=== PATIENT | female | born 2000 | race Caucasian/White ===

== ENCOUNTER 2024-03-17 10:08 | Outpatient (RCR) | payer BC, OTHER, SELFPAY ==
[2024-02-21 08:08] VITALS: BP 121/65; PULSE 74
[2024-02-25 10:07] VITALS: BP 122/79; PULSE 69
[2024-02-29 13:48] VITALS: BP 128/64; PULSE 75
[2024-03-03 09:34] VITALS: BP 121/67; PULSE 74
[2024-03-07 09:57] VITALS: BP 118/65; PULSE 76
[2024-03-10 08:37] VITALS: BP 127/71; PULSE 76
[2024-03-13 09:53] VITALS: BP 112/66; PULSE 70
--- NOTE | ~2024-03-17 | US_ITS ---
EXAMINATION: US OB follow up DATE: 03/10/2024 09:04 INDICATION: Assess growth during third trimester of TECHNIQUE: Real-time ultrasound of the pelvis was performed. The interpreting radiologist was not pre sent for the study. COMPARISON: 03/07/2024 FINDINGS: There is a single living fetus in vertex presentation. The placenta is posterior fundal. heart rate is 126 beats per minute (bpm). Amniotic fluid volume is subjectively normal. The following biometric data were obtained: BPD: 9.3 cm -> 37 weeks 6 days Head circumference: 33.2 cm -> 37 weeks 6 days Abdominal circumference: 32.3 cm -> 36 weeks 1 days Femur length: 7.4 cm -> 37 weeks 6 days These measurements are concordant. Head circumference to abdominal circumference ratio: 1.03 (normal range 0.91-1.05). Estimated weight: 3090 g (+/-) 464 g or 6 lbs. 13 oz. (+/-) 16 oz. IMPRESSION: 1. Single living fetus in vertex presentation with heart rate of 126 bpm. 2. Estimated weight is 39th percentile by Hadlock criteria when 03/28/2024 is used as the estima cira date of delivery (VITALY). Please correlate with clinical information or earlier ultrasounds for mos t accurate VITALY. Reviewed, dictated and finalized at location A. IMPRESSION: 1. Single living fetus in vertex presentation with heart rate of 126 bpm. 2. Estimated weight is 39th percentile by Hadlock criteria when 03/28/2024 is used as the estimated date of delivery (VITALY). Please correlate with clinica l information or earlier ultrasounds for most accurate VITALY.
--- NOTE | ~2024-03-17 | US_ITS ---
US OB BPP wo non-stress DATE: 02/29/2024 14:40 INDICATION: Small for gestational age TECHNIQUE: Real-time imaging and Doppler analysis COMPARISON: 02/21/2024 obstetrical ultrasound biophysical profile FINDINGS: Live martinez intrauterine gestation in longitudinal lie, vertex presentation with h eart rate of 136 bpm. Placenta is posterior to maternal left. No evidence of previa. BIOPHYSICAL PROFILE reported by body technician: breathin out of 2 movement: 2 out of 2 tone: 2 out of 2 Amniotic fluid pocket: 2 out of 2 Total score: 8 out of 8 IMPRESSION: Normal biophysical profile score of 8 out of 8 Reviewed, dictated and finalized at Location A. Reviewed, dictated and finalized at location J.
--- NOTE | ~2024-03-17 | US_ITS ---
EXAMINATION: US OB limited w BPP DATE: 03/17/2024 12:59 INDICATION: Decelerations. IUGR. TECHNIQUE: Real-time pelvic ultrasound was performed. The interpreting radiologist was not present fo r the study. COMPARISON: Ultrasound dated 03/13/2024 FINDINGS: There is a single living fetus in vertex presentation. The placenta is maternal left. cardiac activity and movement are demonstrated. heart rate is 135 beats per minute (bpm). Biophysical profile performed by the technologist: breathing (30 sec sustained breathing in 30 minutes): 2 out of 2 movement (3 gross body movements in 30 minutes): 0 out of 2 tone (one episode of gntvzvz-vcgbrwyww-jbeycph limb movement): 2 out of 2 Amniotic fluid pocket (2 cm): 2 out of 2 Total score: 6 out of 8 IMPRESSION: 1. Single living intrauterine in vertex presentation with heart rate of 135 bpm. 2. Normal placenta. 3. Biophysical profile 6 out of 8. Reviewed, dictated and finalized at location B.
--- NOTE | ~2024-03-17 | US_ITS ---
EXAMINATION: US OB BPP wo non-stress DATE: 03/07/2024 09:39 INDICATION: Intrauterine growth restriction. Third trimester. TECHNIQUE: Real-time pelvic ultrasound was performed. COMPARISON: Ultrasound 02/29/2024 FINDINGS: There is a single living fetus in vertex presentation. The placenta is posterior. heart rate i s 128 beats per minute (bpm). Biophysical profile performed by the technologist: breathing (30 sec sustained breathing in 30 minutes): 2 out of 2 movement (3 gross body movements in 30 minutes): 2 out of 2 tone (one episode of xdbxqwm-xgqsimryi-fzqgpva limb movement): 2 out of 2 Amniotic fluid pocket (2 cm): 2 out of 2 Total score: 8 out of 8 IMPRESSION: 1. Single living fetus in vertex presentation. 2. Biophysical profile 8 out of 8. Reviewed, dictated and finalized at location A.
--- NOTE | ~2024-03-17 | US_ITS ---
EXAMINATION: US OB BPP wo non-stress DATE: 02/21/2024 09:10 INDICATION: Small for gestational age TECHNIQUE: Real-time pelvic ultrasound was performed. The interpreting radiologist was not present fo r the study. COMPARISON: None. FINDINGS: There is a single living fetus in vertex presentation. The placenta is maternal left. cardiac activity and movement are demonstrated. heart rate is 125 beats per minute (bpm). Biophysical profile performed by the technologist: breathing (30 sec sustained breathing in 30 minutes): 2 out of 2 movement (3 gross body movements in 30 minutes): 2 out of 2 tone (one episode of xfrwruk-lipvgbkiw-eobodqf limb movement): 2 out of 2 Amniotic fluid pocket (2 cm): 2 out of 2 Total score: 8 out of 8 IMPRESSION: 1. Single living intrauterine in vertex presentation with heart rate of 125 bpm. 2. Normal placenta. 3. Biophysical profile 8 out of 8. Reviewed, dictated and finalized at location B.
--- NOTE | ~2024-03-17 | US_ITS ---
EXAMINATION: US OB BPP wo non-stress DATE: 03/13/2024 09:50 INDICATION: Intrauterine growth retardation during third trimester of TECHNIQUE: Real-time pelvic ultrasound was performed. The interpreting radiologist was not present fo r the study. COMPARISON: None. FINDINGS: There is a single living fetus in vertex presentation. The placenta is left posterior. heart r ate is 130 beats per minute (bpm). Amniotic fluid volume is subjectively normal with normal deepest v ertical pocket measuring 6.3 cm. Biophysical profile performed by the technologist: breathing (30 sec sustained breathing in 30 minutes): 2 out of 2 movement (3 gross body movements in 30 minutes): 2 out of 2 tone (one episode of dbwzpmf-hfrzkmajy-sqwasdr limb movement): 2 out of 2 Amniotic fluid pocket (2 cm): 2 out of 2 Total score: 8 out of 8 IMPRESSION: 1. Single living fetus in vertex presentation with heart rate of 130 bpm. 2. Biophysical profile 8 out of 8. Reviewed, dictated and finalized at location A.
== END 2024-05-18 09:54 | disposition home or self-care (01) ==
LOC: ANHOBOP 10:08
PROVIDERS: Visit Provider Obstetrics & Gynecology
DX: O36.5991 Maternal care for other known or suspected poor fetal growth, unspecified trimester, fetus 1 (principal)
CPT/HCPCS: 59025; 76815; 76816; 76819; J2175; J2274

== ENCOUNTER 2024-03-17 10:42 | Inpatient (IN) | payer BC, OTHER, SELFPAY ==
[2024-03-17] VITALS (57 sets, daily range): BP systolic 116–137; BP diastolic 63–105; PULSE 66–102; TEMP 36.4–37; O2SAT 91–100; BMI 26.6
--- NOTE | 2024-03-17 13:02 | LDADM ---
This patient, Elba Lamb, was admitted to Labor/Delivery/Recovery 103 on 03/17/24 at 13:02. Plans for labor, pain management and were discussed with patient. Patient/family oriented to hospital policies and general routines including ID bracelet, bed and alarms, visiting hours, pain management, procedures, bathroom and other care routines, personal items, smoking policy, room service/diet and guest tray routines, security routines, and visiting hours. Patient/Family are encouraged to report perceived risks to care and to ask questions if they do not understand what they are told or what they should do. See OBIX for further documentation.
[2024-03-17 14:03] LABS: Basophils Absolute Auto 0.1 K/mm3 (0.0-0.1); Basophils Percent Auto 0.5 % (0.2-1.2); Eosinophils Absolute Auto 0.1 K/mm3 (0-0.3); Eosinophils Percent Auto 1.3 % (0-4.4); Hematocrit 41.6 % (37.0-47.0); Hemoglobin 13.8 g/dL (12.0-15.0); Immature Granulocyte Absolute 0.04 K/mm3 (0.00-0.031); Immature Granulocyte Percent A 0.4 % (0-0.5); Lymphocytes Absolute Auto 2.76 K/mm3 (0.9-3.2); Lymphocytes Percent Auto 26.2 % (18.3-44.2); Mean Corpuscular HGB Conc 33.2 g/dl (32-36); Mean Corpuscular Hemoglobin 33.7 pg (26-34); Mean Corpuscular Volume 101.5 fl (80-100); Mean Platelet Volume 11.8 fl (7.4-10.4); Monocytes Absolute Auto 0.6 K/mm3 (0.1-0.6); Monocytes Percent Auto 6.1 % (2.6-8.5); Neutrophils Absolute Auto 6.9 K/mm3 (1.3-6.7); Neutrophils Percent Auto 65.5 % (45.5-73.1); Platelet Count Result 175 k/mm3 (150-375); Red Cell Distribution Width 12.3 % (11.5-14.5); White Blood Count 10.6 K/mm3 (4.5-10.0)
[2024-03-17 14:53] LABS: HIV 1/2 Ab P24 Ag Result Negative (Negative); Rapid Plasma Reagin Non-Reactive (NonReactive)
--- NOTE | 2024-03-17 15:30 | WPDANESEPP ---
Anes - Eval Pre Procedure Procedure: Labor epidural Date/Time: 03/17/24 15:30 Surgeon: Logan Preop Diagnosis: Pain during labor Pre Op Diagnosis: Extened monitoring Patient Data Age: 23 Gender: F Height: 1.7 m Weight: 77 kg Last Vital Signs Pulse 87 03/17/24 15:16 BP 132/77 03/17/24 15:16 O2 Del Method Room Air 03/17/24 14:20 Allergies Allergy/AdvReac Type Severity Reaction Status Date / Time No Known Allergies Allergy Verified 03/17/24 08:50 Home Medications Medication Instructions Recorded Confirmed Type ondansetron 4 mg disintegrating 4 mg PO Q6H PRN nausea and 08/13/23 03/17/24 Rx tablet vomiting #20 tabs vits no.126-ferrous fum 1 tablet PO DAILY 10/08/23 03/17/24 History 28 mg iron-folic acid 800 mcg tablet (Classic ) Laboratory Tests 03/17/24 13:55 WBC 10.6 H K/mm3 (4.5-10.0) RBC 4.10 L M/mm3 (4.2-5.4) Hgb 13.8 g/dL (12.0-15.0) Hct 41.6 % (37.0-47.0) MCV 101.5 H fl (80-100) MCH 33.7 pg (26-34) MCHC 33.2 g/dl (32-36) RDW 12.3 % (11.5-14.5) Plt Count 175 k/mm3 (150-375) MPV 11.8 H fl (7.4-10.4) Immature Gran % (Auto) 0.4 % (0-0.5) Neut % (Auto) 65.5 % (45.5-73.1) Lymph % (Auto) 26.2 % (18.3-44.2) [place] % (Auto) 6.1 % (2.6-8.5) Eos % (Auto) 1.3 % (0-4.4) Baso % (Auto) 0.5 % (0.2-1.2) Lymph # (Auto) 2.76 K/mm3 (0.9-3.2) [place] # (Auto) 0.6 K/mm3 (0.1-0.6) Eos # (Auto) 0.1 K/mm3 (0-0.3) Baso # (Auto) 0.1 K/mm3 (0.0-0.1) Abs Immat Gran (auto) 0.04 H K/mm3 (0.00-0.031) Absolute Neuts (auto) 6.9 H K/mm3 (1.3-6.7) Absolute Nucleated RBC 0.000 K/mm3 (0.0-0.012) Nucleated RBC % 0.0 % (0.0-0.2) RPR Non-reactive (NonReactive) HIV 1&2 Ab/P24 Ag 4thGn Negative (Negative) Blood Type A Positive Antibody Screen Negative Patient hx anesthesia problems: none Family hx anesthesia problems: none Results Review: All pre-operative results and documents have been reviewed as part of the pre-operative evaluation. [facility] Past Medical History Medical History Bruises easily Pneumonia Family History Family History Father No problems noted. Mother Breast cancer Social History Social History Social History: Patient drinks coffee and soda daily Smoking status: Never smoker Second hand tobacco smoke exposure: No Alcohol intake: never Substance use: never Substance use type: does not use Do You Feel Safe in your Home?: Yes Lack of Transportation: No Lack of Food: Never True Current Housing: I Have Housing Concerned About Future Housing: No Difficulty Paying Gas/Electric Bills: No Difficulty Paying for Meds: No Currently Unemployed: No Education: Bachelor's Degree Difficulty w/ Childcare or Family Care: No Living arrangements: with family Occupation/Education: occupation Additional occupation/education comments: [employer] Gender identity (if verbalized by the patient): Female Sexual Orientation (if Verbalized by the Patient): Straight or Heterosexual Spiritual care concerns: No Exam Day of Procedure 03/17/24 15:30 Patient weight: overweight Heart: regular rate and rhythm Lungs: clear to auscultation Airway: Mallampati scale Neurological: alert and oriented
[2024-03-17] MEDS: DINOPROSTONE 10 MG VAG INSERT VAGINAL (15:43)
[2024-03-17] MEDS: LACTATED RINGERS 1,000 ML 500 ML IV CONT (20:28)
--- NOTE | 2024-03-17 21:19 | PM.IMHP ---
H&P: HPI History of Present Illness Date/Time: 03/17/24 21:19 Chief Complaint: IOL due to non-reassuring FHT Narrative: Elba is a 23yo @ 38.6wks who presented to her routine OB visit. She had originally been scheduled for IOL due to IUGR 03/16/24 PM. At her anatomy US and 3rd trimester US; AC was noted to be 7 then 10.7%. She had been undergoing twice weekly NST/weekly BPP. She was seen the two weeks before her IOL and stated that she was not comfortable with proceeding with induction of labor. Repeat growth scan was performed at [facility] and she was told everything looked normal. She presented today saying she has been noticing less movements. She agreed to continue the twice weekly NSTs, weekly BPPs. Today during her NST, heart decels were noted. BPP was then done and was 6/8 and it was recommended that she go ahead and be induced today (12/22). She agreed and her IOL was started with cervidil for further cerivcal ripening. In the evening though, she began having recurrent variable and late decelerations and the cervidil was removed after approximately 4-[address]; and was found to be 2.5/75/-2. She was recommended to get epidural in the event of heart rate not returning to normal. Her has been complicated by: - Varicella/CMV non-immune - Asthma - IUGR Review of Systems Constitutional: Constitutional: Denies chills, Denies fever(s) and Denies headache(s) Eyes: Eyes: Denies change in vision ENT: Denies headache(s) Cardiovascular: Cardiovascular: Denies chest pain and Denies dyspnea Respiratory: Respiratory: Denies dyspnea Genitourinary: Genitourinary: Denies abnormal vaginal bleeding and Denies vaginal discharge Neurologic: Denies headache(s) Psychiatric: Psychiatric: Denies anxiety and Denies depression [facility] Past Medical History Medical History Bruises easily Pneumonia Family History Family History Father No problems noted. Mother Breast cancer Social History Social History Social History: Patient drinks coffee and soda daily Smoking status: Never smoker Second hand tobacco smoke exposure: No Alcohol intake: never Substance use: never Substance use type: does not use Do You Feel Safe in your Home?: Yes Lack of Transportation: No Lack of Food: Never True Current Housing: I Have Housing Concerned About Future Housing: No Difficulty Paying Gas/Electric Bills: No Difficulty Paying for Meds: No Currently Unemployed: No Education: Bachelor's Degree Difficulty w/ Childcare or Family Care: No Living arrangements: with family Occupation/Education: occupation Additional occupation/education comments: [employer] Gender identity (if verbalized by the patient): Female Sexual Orientation (if Verbalized by the Patient): Straight or Heterosexual Spiritual care concerns: No Meds Home Medications and Allergies Home Medications Medication Instructions Recorded Confirmed Type ondansetron 4 mg disintegrating 4 mg PO Q6H PRN nausea and 08/13/23 03/17/24 Rx tablet vomiting #20 tabs vits no.126-ferrous fum 1 tablet PO DAILY 10/08/23 03/17/24 History 28 mg iron-folic acid 800 mcg tablet (Classic ) Allergies Allergy/AdvReac Type Severity Reaction Status Date / Time No Known Allergies Allergy Verified 03/17/24 08:50 Vital Signs Vital Signs - 24 hr 03/17/24 14:31 03/17/24 14:46 03/17/24 15:01 Temperature Pulse Rate 71 85 67 Blood Pressure 129/74 133/78 135/67 Pulse Oximetry Oxygen Delivery 03/17/24 15:16 03/17/24 15:31 03/17/24 16:00 Temperature Pulse Rate 87 80 77 Blood Pressure 132/77 134/82 128/75 Pulse Oximetry Oxygen Delivery 03/17/24 16:15 03/17/24 16:30 03/17/24 16:46 Temperature
[2024-03-17] MEDS: ACETAMINOPHEN 500 MG TABLET 1000 MG PO (23:19)
[2024-03-17] MEDS: FAMOTIDINE 20 MG/2 ML VIAL IV PUSH (23:19)
[2024-03-17] MEDS: ONDANSETRON INJ 4 MG/2 ML VIAL IV PUSH (23:19)
--- NOTE | 2024-03-17 23:21 | PM.OBPNLAB ---
Pain Control Date/time seen: 03/17/24 23:21 Pain control: epidural Pelvic Exam Dilation (cm): 3 Effacement (%): 75 station: -2 Amniotic membrane status: Intact Contractions Monitor mode: External Contraction pattern: Irregular Status status: Category ll Comments: recurrent late decelerations with minimal variability and no accelerations Assessment and Plan Plan: Comments: - risks and benefits discussed in detail
--- NOTE | 2024-03-17 23:22 | WPDHPUPDATE1 ---
History and Physical Update Update Date/Time: 03/17/24 23:22 History and Physical has been reviewed, including an updated exam of the patient. There are NO changes in the patient's condition. Risks, benefits, and alternatives have been discussed and questions answered. Patient agrees to proceed with ..
[2024-03-17] MEDS: ceFAZolin 2 GM/D5W 50 ML 2 GM/50 ML BAG IVPB (23:26)
[2024-03-17] MEDS: LACTATED RINGERS 1,000 ML 125 ML IV CONT (23:31)
[2024-03-18] VITALS (18 sets, daily range): BP systolic 115–152; BP diastolic 50–82; PULSE 66–86; RESP 12–18; TEMP 36.2–36.9; O2SAT 96–100
--- NOTE | 2024-03-18 00:29 | W.PM.OBCSD ---
OB - Delivery Note Procedure Delivery date: 03/17/24 Pre-op diagnosis: Intrauterine Growth Restriction (IUGR) and Non-Reassuring Status Post-op Diagnosis: Same Induction method: Per Cervidil Protocol Delivery monitor: External FHT and External Uterine Prior to decision for section, [facility] labor guidelines were considered and discussed with the patient and staff. Decision made to proceed with the section.: Yes Procedure Performed: Primary Primary branch: low cervical, transverse Surgeon: Miguelina Ford MD Anesthesia type: Epidural Description of Procedure/Findings: male , cephalic, clear fluid, normal uterus/tubes/ovaries. Thin, short cord noted; small placenta. Good hemostasis at end of case. Specimen: Yes (placenta) Estimated Blood Loss: 410 IV Fluids: 800 Urine Output: 200 Pathology: Yes (placenta) Complications: No immediate complications Condition: Stable Disposition: Floor Baby Date of : 03/17/24 Time of : 23:49 Gestational Age by Date: 38 (.6) Infant gender: Male Weight (pounds): 5 Weight (ounces): 4 presentation: vertex position: Right Occiput Transverse Placenta delivery description: Expressed Cord Vessel Description: 3 Vessels and Other (short, thin cord) score one minute: 9 score five minutes: 9 Narrative: Elba was counseled on all risks and benefits in detail. She was taken to the operating room where epidural was found to be adequate. She was then prepped and draped in the normal sterile fashion. She received 2g Ancef and a time out was performed. A Pfannenstiel incision was made in the skin and carried down to the underlying fascia. The fascia was nicked on either side of the midline and the fascial incision was extended laterally and superiorly using curved Fuchs scissors. The fascia was then elevated using Emily clamps and the underlying rectus muscles were dissected off the fascia, superiorly and inferiorly. The rectus muscles were then in the midline and the peritoneum was entered bluntly. Once adequate exposure was obtained, a Mobius self retractor was placed within the abdomen. A bladder flap was created. A low transverse incision was made on the lower uterine segment and clear fluid was noted. The occiput was brought to the hysterotomy and the head was easily delivered. The shoulders and body then followed without complications. The infant had spontaneous cry and the mouth and nose were bulb suctioned. The cord was clamping was delayed and then it was doubly clamped and cut and the was handed off to the awaiting pediatric nurse. A segment of the cord was not able to be collected for cord gases as it was too short. The cord blood was collected for typing. With pitocin infusing, the placenta delivered with gentle traction on the cord without complications. The uterus was then cleared out of all clots and debris using a clean, moist lap. The hysterotomy was then repaired in a running, interlocking fashion using 0 Vicryl. A second layer imbricating suture was then made using 0 Vicryl. A figure of eight using 2-0 Vicryl was placed in the middle of the hysterotomy and it was then found to be hemostatic and good uterine tone was noted. The bilateral adnexa were examined and found to be normal. The pelvis was cleared of all clots and fluid. The Mobius retractor was removed from the abdomen. The peritoneum, muscle, and fascia were examined and made hemostatic with bovie cautery. The fascia was then repaired using a 0 Vicryl suture in a running fashion. The subcutaneous tissue was then irrigated and made hemostatic with bovie cautery. The subcutaneous tissue was then reapproximated using 2-0 Vicryl. The skin was then closed using 4-0 Monocryl in a running subcuticular fashion. A Mepilex dressing was placed over her incision. Sponge, lap, needle and instrument counts were correct at the end of the pro
[2024-03-18] MEDS: OXYTOCIN 30 UNITS/NS 500 ML 30 UNITS/500 ML BAG 125 UNITS IV CONT (01:33)
--- NOTE | 2024-03-18 02:41 | PC.NURSE ---
Patient transferred to post room #287 via (Stretcher ). Support person present. Oriented to unit, room, information board, rooming in, admission packet and security measures. Patient verbalizes understanding.
[2024-03-18] MEDS: KETOROLAC 15 MG/ML VIAL (*BKC) IV PUSH ×2 (05:47→11:49)
[2024-03-18] MEDS: ACETAMINOPHEN 325 MG TABLET 650 MG PO ×4 (05:47→23:56)
[2024-03-18] MEDS: LORATADINE 10 MG TABLET PO (05:47)
[2024-03-18 06:10] LABS: Basophils Percent Auto 0.1 % (0.2-1.2); Eosinophils Absolute Auto 0.1 K/mm3 (0-0.3); Eosinophils Percent Auto 0.4 % (0-4.4); Hematocrit 32.2 % (37.0-47.0); Hemoglobin 10.7 g/dL (12.0-15.0); Immature Granulocyte Absolute 0.05 K/mm3 (0.00-0.031); Immature Granulocyte Percent A 0.4 % (0-0.5); Lymphocytes Absolute Auto 2.37 K/mm3 (0.9-3.2); Lymphocytes Percent Auto 17.1 % (18.3-44.2); Mean Corpuscular HGB Conc 33.2 g/dl (32-36); Mean Corpuscular Hemoglobin 32.7 pg (26-34); Mean Corpuscular Volume 98.5 fl (80-100); Mean Platelet Volume 11.3 fl (7.4-10.4); Monocytes Absolute Auto 0.8 K/mm3 (0.1-0.6); Monocytes Percent Auto 5.4 % (2.6-8.5); Neutrophils Absolute Auto 10.7 K/mm3 (1.3-6.7); Neutrophils Percent Auto 76.6 % (45.5-73.1); Platelet Count Result 134 k/mm3 (150-375); Red Blood Count 3.27 M/mm3 (4.2-5.4); Red Cell Distribution Width 12.1 % (11.5-14.5); White Blood Count 13.9 K/mm3 (4.5-10.0)
[2024-03-18] MEDS: DEXTROSE 5%/0.45% SOD CHL 1,000 ML 125 ML IV CONT (07:11)
--- NOTE | 2024-03-18 07:17 | PM.OBPNVD ---
OB - PN: Subj Subjective Date/time seen: 03/18/24 07:17 Narrative: POD#1 Elba reports doing well today. Her bleeding is normal. Her pain is controlled. She tolerated regular diet overnight (snacks). She has her bravo in place. She has not ambulated. She has not passed gas yet. She denies any issues with her incision. She is bottle feeding. She would like her son circumcised. OB - PN: Obj Data Labs 03/18/24 06:00 Labs: Laboratory Results - last 24 hr 03/17/24 03/18/24 13:55 06:00 WBC 10.6 H 13.9 H RBC 4.10 L 3.27 L Hgb 13.8 10.7 L D Hct 41.6 32.2 L MCV 101.5 H 98.5 MCH 33.7 32.7 MCHC 33.2 33.2 RDW 12.3 12.1 Plt Count 175 134 L MPV 11.8 H 11.3 H Immature Gran % (Auto) 0.4 0.4 Neut % (Auto) 65.5 76.6 H Lymph % (Auto) 26.2 17.1 L [place] % (Auto) 6.1 5.4 Eos % (Auto) 1.3 0.4 Baso % (Auto) 0.5 0.1 L Lymph # (Auto) 2.76 2.37 [place] # (Auto) 0.6 0.8 H Eos # (Auto) 0.1 0.1 Baso # (Auto) 0.1 0.0 Abs Immat Gran (auto) 0.04 H 0.05 H Absolute Neuts (auto) 6.9 H 10.7 H Absolute Nucleated RBC 0.000 0.000 Nucleated RBC % 0.0 0.0 RPR Non-reactive HIV 1&2 Ab/P24 Ag 4thGn Negative Blood Type A Positive Antibody Screen Negative OB - PN A/P Assessment and Plan (1) S/P primary low transverse : Code(s): Z98.891 - History of uterine scar from previous surgery Status: Acute Plan day: 1 Plan: routine care Comments: - PO pain meds - Regular diet - Ambulation and hydration encouraged - will remove catheter this morning Time Spent With Patient Time: Total time spent is greater than 50% in coordination of care (as documented) at patient's floor/unit and/or counseling patient: Review of Systems Constitutional: Constitutional: Denies chills, Denies fever(s) and Denies headache(s) Eyes: Eyes: Denies change in vision ENT: Denies dizziness and Denies headache(s) Cardiovascular: Cardiovascular: Denies chest pain, Denies palpitations and Denies dyspnea Respiratory: Respiratory: Denies cough and Denies dyspnea Gastrointestinal: Gastrointestinal: Denies nausea and Denies vomiting Genitourinary: Comments: normal bleeding Neurologic: Denies dizziness and Denies headache(s) Endocrine: Endocrine: Denies palpitations Exam Const: General: cooperative, healthy appearing, comfortable and no acute distress Orientation/consciousness: patient oriented x3 Resp: Effort & Inspection: normal respiratory effort Auscultation: clear to auscultation bilaterally Cardio: Rate: regular rate GI: Inspection: non-distended and incision (covered with clean dressing) GI Palp: Yes abdominal tenderness (appropriate) and Yes Soft to palpation Auscultation: normal bowel sounds : Other: fundus firm Urinary Catheter: Urinary Catheter: patent and draining and urine clear Skin: General skin exam: normal color Neuro: General: patient oriented x3 Extrem: General: normal to inspection Psych: Appearance: grossly normal Affect: normal affect Attitude: cooperative
[2024-03-18] MEDS: SIMETHICONE 80 MG TAB.CHEW PO ×3 (08:01→17:57)
[2024-03-18] MEDS: MULTIVIT/MIN/PREN/FOL AC/IRON TABLET 1 TAB PO (08:02)
[2024-03-18] MEDS: DOCUSATE SODIUM 100 MG CAPSULE PO ×2 (08:02→17:57)
--- NOTE | 2024-03-18 10:05 | WPDANLDPN2 ---
Anes-Prog Note L&D Date/Time: 03/18/24 10:05 Comfortable throughout: section Neuraxial method: epidural Epidural/Spinal procedure site: clean & non-tender Neuro status: Neuro function grossly intact. Cardiovascular status: normal Respiratory status: normal Airway patency: baseline Mental status: baseline Post-Op hydration status: normal Vital Signs: Last Vital Signs Temp 36.2 C L 03/18/24 07:20 Pulse 79 03/18/24 07:20 Resp 16 03/18/24 07:20 BP 115/65 03/18/24 07:20 Pulse Ox 98 03/18/24 07:20 O2 Del Method Room Air 03/18/24 07:15 Pain score (VAS): 07/24 I/O: Intake & Output 03/17/24 03/18/24 03/18/24 23:59 07:59 15:59 Intake Total 1000 800 0 Output Total 935 Balance 1000 -135 0 Post-procedural complaints: pruritis moderate, treatment effective Patient feedback: Patient satisfied with anesthetic care.
--- NOTE | 2024-03-18 10:06 | WPDANLDNPN2 ---
Anes-Prog Note L&D-Neuraxial Date/Time: 03/18/24 10:06 Neuraxial medications: epidural PF morphine Opiod-related complaints: pruritis moderate, treatment effective Patient feedback: Patient satisfied with post-operative pain management.
[2024-03-18] MEDS: IBUPROFEN 600 MG TABLET PO ×2 (17:57→23:56)
[2024-03-19] MEDS: IBUPROFEN 600 MG TABLET PO ×3 (06:03→19:00)
[2024-03-19] MEDS: ACETAMINOPHEN 325 MG TABLET 650 MG PO ×3 (06:03→19:00)
--- NOTE | 2024-03-19 07:58 | P.PNOB_ITS ---
OB - PN: Subj Subjective Date/time seen: 03/19/24 07:15 Narrative: POD#2 [place] reports doing well today. 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 Her pain is controlled. She is tolerating regular diet, voiding, passing gas, and ambulating without issues. She denies any issues with her incision. She is bottle feeding. She would like her son circumcised, but he is in the level 2 nursery on D10 currently. OB - PN: Obj Data Labs 03/18/24 06:00 Labs: Laboratory Results - last 24 hr 03/18/24 06:00 WBC 13.9 H RBC 3.27 L Hgb 10.7 L D Hct 32.2 L MCV 98.5 MCH 32.7 MCHC 33.2 RDW 12.1 Plt Count 134 L MPV 11.3 H Immature Gran % (Auto) 0.4 Neut % (Auto) 76.6 H Lymph % (Auto) 17.1 L [place] % (Auto) 5.4 Eos % (Auto) 0.4 Baso % (Auto) 0.1 L Lymph # (Auto) 2.37 [place] # (Auto) 0.8 H Eos # (Auto) 0.1 Baso # (Auto) 0.0 Abs Immat Gran (auto) 0.05 H Absolute Neuts (auto) 10.7 H Absolute Nucleated RBC 0.000 Nucleated RBC % 0.0 OB - PN A/P Assessment and Plan (1) S/P primary low transverse : Code(s): Z98.891 - History of uterine scar from previous surgery Status: Acute Plan day: 2 Plan: routine care Comments: - PO pain meds - Regular diet - Ambulation and hydration encouraged - Will wait on circ until he is off D10 Time Spent With Patient Time: Total time spent is greater than 50% in coordination of care (as documented) at patient's floor/unit and/or counseling patient: Review of Systems Constitutional: Constitutional: Denies chills, Denies fever(s) and Denies headache(s) Eyes: Eyes: Denies change in vision ENT: Denies dizziness and Denies headache(s) Cardiovascular: Cardiovascular: Denies chest pain, Denies palpitations and Denies dyspnea Respiratory: Respiratory: Denies cough and Denies dyspnea Gastrointestinal: Gastrointestinal: Denies nausea and Denies vomiting Genitourinary: Comments: normal bleeding Neurologic: Denies dizziness and Denies headache(s) Endocrine: Endocrine: Denies palpitations Exam Const: General: cooperative, healthy appearing, comfortable and no acute distress Orientation/consciousness: patient oriented x3 Resp: Effort & Inspection: normal respiratory effort Auscultation: clear to auscultation bilaterally Cardio: Rate: regular rate GI: Inspection: non-distended and incision (covered with clean dressing) GI Palp: Yes abdominal tenderness (appropriate) and Yes Soft to palpation Auscultation: normal bowel sounds : Other: fundus firm Skin: General skin exam: normal color Neuro: General: patient oriented x3 Extrem: General: normal to inspection Psych: Appearance: grossly normal Affect: normal affect Attitude: cooperative
[2024-03-19 08:15] VITALS: BP 118/79; PULSE 70; RESP 18; TEMP 36.9; O2SAT 100
[2024-03-19] MEDS: SIMETHICONE 80 MG TAB.CHEW PO ×2 (08:26→13:32)
[2024-03-19] MEDS: DOCUSATE SODIUM 100 MG CAPSULE PO (08:26)
[2024-03-19] MEDS: MULTIVIT/MIN/PREN/FOL AC/IRON TABLET 1 TAB PO (08:26)
[2024-03-19 19:20] VITALS: PULSE 70; RESP 18; O2SAT 100
[2024-03-19 19:22] VITALS: BP 143/64; PULSE 82; RESP 18; TEMP 36.7; O2SAT 100
[2024-03-20] MEDS: IBUPROFEN 600 MG TABLET PO ×3 (03:00→15:14)
[2024-03-20] MEDS: ACETAMINOPHEN 325 MG TABLET 650 MG PO ×3 (03:00→15:14)
[2024-03-20] MEDS: DOCUSATE SODIUM 100 MG CAPSULE PO (09:12)
[2024-03-20] MEDS: MULTIVIT/MIN/PREN/FOL AC/IRON TABLET 1 TAB PO (09:12)
[2024-03-20] MEDS: SIMETHICONE 80 MG TAB.CHEW PO ×2 (09:12→15:15)
[2024-03-20 12:44] VITALS: BP 131/73; PULSE 72; RESP 16; TEMP 36.7; O2SAT 100
--- NOTE | 2024-03-20 15:18 | PC.NURSE ---
Patient viewed the discharge video Mother & Baby Care, The First Two Weeks . Patient was given the opportunity and encouraged to ask questions. Patient verbalized understanding of information shared and has been given the mother/baby guide for home reference.
--- NOTE | 2024-03-20 15:25 | PM.OBDSVD ---
DS: Admitting Diagnosis Discharge Date 03/20/2024 Admitting Diagnosis DS: Discharge Diagnosis Discharge Diagnosis (1) , delivered: Code(s): O80 - Encounter for full-term uncomplicated delivery Status: Acute OB - DS: Summary OB Procedures : None OB Procedures Intrapartum: OB Procedures: : None Peripartum Data Procedures: Procedures Operation Date: 03/17/24 23:05 Actual Procedure Side Surgeon p Section Not Applicable Miguelina Ford MD Time Spent with Patient Time attestation: Total time spent providing and/or coordinating discharge services: DS: Data Data Completed and Pending Completed studies during hospitalization: Pending at discharge 03/18/24 01:18 Surgical [PTH] Routine Discharge Plan Discharge Attending physician on discharge: Miguelina Ford Discharging Clinician: Surya Membreno Anticipated Discharge Date/Time: 03/20/24 11:00 Patient Disposition: Home, Self-Care Activity: may shower, may drive after 2 weeks and pelvic rest Diet: regular Discharge Instructions: No lifting over 15 pounds for 6 weeks. Remove incision dressing on 03/23/24; then keep incision open to air, clean & dry. Stand Alone Forms: General Discharge Information Follow-up/Referrals: Miguelina Ford MD [Physician] - 4 Weeks Discharge Medications: New acetaminophen 325 mg Tablet 650 mg PO Q6H Qty: 60 0RF hydrocodone-acetaminophen 5-325 mg Tablet 1 tablet PO Q3H PRN (Reason: Breakthrough Pain Rated 4-6) Qty: 20 0RF docusate sodium 100 mg Capsule 100 mg PO BID Qty: 90 0RF ibuprofen 600 mg Tablet 600 mg PO Q6H Qty: 40 0RF Continued ondansetron 4 mg tablet,disintegrating 4 mg PO Q6H PRN (Reason: nausea and vomiting) Qty: 20 1RF Classic 28 mg iron- 800 mcg tablet 1 tablet PO DAILY Date of admission: 03/17/24 13:02 Primary Care Provider: UNKNOWN,DOCTOR Admitting Provider: Miguelina Ford Attending physician on admission: Miguelina Ford Condition: Stable
== END 2024-03-20 17:45 | disposition home or self-care (01) | DRG 788 ==
LOC: ANHLDR 11:51 → ANHOB2 03-18 20:56 → ANHLDR 03-23 08:51
PROVIDERS: Admitting Provider Obstetrics & Gynecology; Visit Provider Obstetrics & Gynecology
PROC: 3E033VJ Introduction of Other Hormone into Peripheral Vein, Percutaneous Approach (ICD-10-PCS; CPT 59514; principal; 2024-03-17 23:05)
DX: O36.8330 Maternal care for abnormalities of the fetal heart rate or rhythm, third trimester, not applicable or unspecified (principal); Z37.0 Single live birth; Z3A.38 38 weeks gestation of pregnancy; O36.5930 Maternal care for other known or suspected poor fetal growth, third trimester, not applicable or unspecified; O69.3XX0 Labor and delivery complicated by short cord, not applicable or unspecified
CPT/HCPCS: 36415; 76815; 76819; 85025; 86592; 86703; 86850; 86900; 86901; 88307; A9270; G0378; G0379; G0432; J0690; J1885; J2175; J2274; J2405; J2590; J2795; J7120